=== PATIENT | female | born 1985 | race African-American/Black ===

== ENCOUNTER 2018-10-14 12:16 | Emergency (ER) | payer OTHER ==
[~2018-10-14] VITALS: Ht 165.1 cm; Wt 97.1 kg
[2018-10-14 13:03] VITALS: BP 167/84
--- NOTE | 2018-10-14 13:05 | PHYS DOC ---
Past Medical History Past Medical History: Asthma Past Surgical History: Tubal ligation Adult General Chief Complaint Chief Complaint: Congestion HPI HPI Patient is a 33 year old female who presents with 2 days of runny nose congestion and now asthma exacerbation. No fevers. Lost inhaler. No CP She is here with her child who is also a patient Review of Systems Review of Systems Constitutional: Denies fever or chills [] Eyes: Denies change in visual acuity, redness, or eye pain [] HENT: Denies sore throat []c/o sore throat Respiratory: c/o cough and SOB, asthma exacerbation Cardiovascular: No additional information not addressed in HPI [] GI: Denies abdominal pain, nausea, vomiting, bloody stools or diarrhea [] : Denies dysuria or hematuria [] Musculoskeletal: Denies back pain or joint pain [] Integument: Denies rash or skin lesions [] Neurologic: Denies headache, focal weakness or sensory changes [] Endocrine: Denies polyuria or polydipsia [] All other systems were reviewed and found to be within normal limits, except as documented in this note. Current Medications Current Medications Current Medications Medications (Trade) Dose Ordered Sig/John Start Time Stop Time Status Last Admin Dose Admin Albuterol Sulfate (Ventolin Neb Soln) 2.5 mg 1X ONCE 10/14/18 13:15 10/14/18 13:16 DC 10/14/18 13:19 2.5 MG Allergies Allergies Allergies Coded Allergies Type Severity Reaction Last Updated Verified amoxicillin Allergy Intermediate 10/14/18 Yes morphine Allergy Intermediate 10/14/18 Yes nitrofurantoin Allergy Intermediate 10/14/18 Yes Physical Exam Physical Exam Constitutional: Well developed, well nourished, no acute distress, non-toxic appearance. [] HENT: Normocephalic, atraumatic, bilateral external ears normal, oropharynx moist, no oral exudates, nose congestion and rhinorrhea Eyes: PERRLA, EOMI, conjunctiva normal, no discharge. [] Neck: Normal range of motion, no tenderness, supple, no stridor. [] Cardiovascular:Heart rate regular rhythm, no murmur [] Lungs & Thorax: diminished bilateral breath sounds, faint expiratory wheezing, persistent cough on exam Abdomen: Bowel sounds normal, soft, no tenderness, no masses, no pulsatile masses. [] Skin: Warm, dry, no erythema, no rash. [] Back: No tenderness, no CVA tenderness. [] Extremities: No tenderness, no cyanosis, no clubbing, ROM intact, no edema. [] Neurologic: Alert and oriented X 3, normal motor function, normal sensory function, no focal deficits noted. [] Psychologic: Affect normal, judgement normal, mood normal. [] Current Patient Data Vital Signs Vital Signs Date Time Temp Pulse Resp B/P (MAP) Pulse Ox O2 Delivery O2 Flow Rate FiO2 10/14/18 13:20 99 Room Air 10/14/18 13:03 98.7 113 22 167/84 (111) 98.7 Pulse 88 on my exam EKG EKG [] Radiology/Procedures Radiology/Procedures [] Impressions: Asthma exacerbation, URI Course & Med Decision Making Course & Med Decision Making Pertinent Labs and Imaging studies reviewed. (See chart for details) []Hx of asthma with recent allergies and lost her inhaler No hypoxia no CP Albuterol treatment and symptoms resolved, resting in no distress, lungs CTA, no further coughing Prescription for Albuterol, stable for home care, educated on home care fu and reasons to return to the ER Cheli Disclaimer Cheli Disclaimer This electronic medical record was generated, in whole or in part, using a voice recognition dictation system. Departure Departure Impression: Primary Impression: Asthma Disposition: 01 HOME, SELF-CARE Condition: IMPROVED Patient Instructions: Asthma, Adult Additional Instructions: Go home and rest Benadryl and Motrin for symptoms Inhaler as prescribed Call your doctor for follow up, return for any concerns or worsening symptoms NICHOLAS PAREDES APRN Oct 14, 2018 13:05
[2018-10-14] MEDS ORDERED: ALBUTEROL SULFATE 2.5 MG/3 ML NEBU. NEB ONE (13:15)
== END 2018-10-14 13:52 | disposition home or self-care (01) ==
LOC: ER 12:16
DX: J45.901 Unspecified asthma with (acute) exacerbation (principal); Z88.1 Allergy status to other antibiotic agents; Z88.5 Allergy status to narcotic agent; Z88.8 Allergy status to other drugs, medicaments and biological substances
CPT/HCPCS: 94640; 99283; J7613